=== PATIENT | female | born 1945 | race Caucasian/White ===

== ENCOUNTER 2024-05-29 05:44 | Inpatient (IN) ==
[2024-05-16 17:14] LABS: Basophils # (Auto) 0.05 K/mcL (0.00-0.30); Basophils % (Auto) 0.6 % (0.0-2.0); Eosinophils # (Auto) 0.24 K/mcL (0.00-0.70); Eosinophils % (Auto) 3.1 % (0.0-7.0); Hematocrit 36.9 % (34.1-44.9); Hemoglobin 11.7 g/dL (11.2-15.7); Lymphocytes # (Auto) 2.54 K/mcL (1.50-4.80); Lymphocytes % (Auto) 32.7 % (15.5-49.0); Mean Cell Volume 92.3 fL (80.0-100.0); Mean Corpuscular HGB Conc 31.7 g/dL (31.0-36.0); Mean Platelet Volume 9.2 fL (8.8-12.5); Monocytes # (Auto) 0.56 K/mcL (0.10-0.90); Monocytes % (Auto) 7.2 % (1.0-12.0); Neutrophils % (Auto) 56.1 % (38.0-78.0); Platelet Count 281 K/mcL (140-440); Red Cell Distribution Width 14.4 % (11.5-14.5); WBC 7.8 K/mcL (4.5-11.0)
[2024-05-16 17:25] LABS: INR 0.9 (0.9-1.1); Prothrombin Time 12.8 sec (11.9-14.5)
[2024-05-16 17:31] LABS: ALT/SGPT 29 U/L (<40); AST/SGOT 24 U/L (<32); Albumin 4.2 gm/dL (3.2-5.2); Albumin/Globulin Ratio 1.4 (1.0-2.3); Alkaline Phosphatase 75 U/L (39-117); Bilirubin,Total 0.3 mg/dL (0.1-1.0); Blood Urea Nitrogen 21 mg/dL (8-23); Calcium 9.7 mg/dL (8.6-10.4); Carbon Dioxide 26 mmol/L (22-30); Chloride 98 mmol/L (96-108); Globulin 3.1 gm/dL (2.2-3.7); Glomerular Filtration Rate 69; Glucose 110 mg/dL (70-105); Potassium 4.4 mmol/L (3.3-5.1); Sodium 136 mmol/L (133-145)
[2024-05-16 18:53] LABS: Estimated Average Glucose(eAG) 174 mg/dL; Hemoglobin A1C 7.7 % Hgb (4.0-6.0)
[2024-05-29] MEDS ORDERED: GLYCOPYRROLATE 0.2 MG/ML VIAL IV ONE (07:14)
[2024-05-29] MEDS ORDERED: SUCCINYLCHOLINE 200 MG/10 ML VIAL IV ONE (07:14)
[2024-05-29] MEDS ORDERED: FAMOTIDINE/PF 20 MG/2 ML VIAL IV ONE (07:14)
[2024-05-29] MEDS ORDERED: ONDANSETRON 4 MG/2 ML VIAL ONE (07:14)
[2024-05-29] MEDS ORDERED: DEXAMETHASONE 10 MG/ML VIAL ONE (07:14)
[2024-05-29] MEDS ORDERED: PROPOFOL 200 MG/20 ML VIAL IV ONE (07:14)
[2024-05-29] MEDS ORDERED: ROCURONIUM 10 MG/ML ML IV ONE (07:14)
[2024-05-29] MEDS ORDERED: KETAMINE 50 MG/ML Syringe IV ONE (07:19)
[2024-05-29] MEDS ORDERED: fentaNYL 100 MCG/2 ML VIAL ONE (07:19)
[2024-05-29] MEDS ORDERED: MAGNESIUM SULFATE 2 GM/50 ML BAG IV ONE (07:21)
[2024-05-29] MEDS: methylPREDNISolone SOD SUCC 125 MG/2 ML VIAL IV SCH ×2 (07:28→20:30)
[2024-05-29] MEDS: SCOPOLAMINE 1 PATCH PATCH TOPICAL ONE (07:29)
[2024-05-29] MEDS: metroNIDAZOLE 500 MG/100 ML BAG IV SCH ×2 (07:29→12:11)
[2024-05-29] MEDS: CEFEPIME 2 GM VIAL IV SCH (07:49)
[2024-05-29] MEDS ORDERED: PHENYLephrine 1 MG/10 ML SYRINGE (ANEST) ONE (07:50)
[2024-05-29] MEDS ORDERED: HYDROmorphone 0.5 MG/0.5 ML SYRINGE ONE (08:09)
[2024-05-29] MEDS ORDERED: METOCLOPRAMIDE 10 MG/2 ML VIAL ONE (08:12)
[2024-05-29] MEDS ORDERED: BENZOCAINE/MENTHOL 1 LOZENGE PO PRN (08:22)
[2024-05-29] MEDS ORDERED: DROPERIDOL 5 MG/2 ML VIAL IV PRN (08:22)
[2024-05-29] MEDS ORDERED: IPRATROPIUM/ALBUTEROL 3 ML AMPUL.NEB NEB PRN (08:22)
[2024-05-29] MEDS ORDERED: LACTATED RINGERS 250 ML IV PRN (08:22)
[2024-05-29] MEDS ORDERED: NALOXONE HCL 0.4 MG/ML VIAL IV PRN (08:22)
[2024-05-29] MEDS ORDERED: SUGAMMADEX SODIUM 200 MG/2 ML VIAL IV ONE (08:48)
[2024-05-29] MEDS: ACETAMINOPHEN 1,000 MG/100 ML BAG IV ONE (09:30)
[2024-05-29] MEDS: fentaNYL 100 MCG/2 ML VIAL IV PRN (10:00)
[2024-05-29] MEDS: ONDANSETRON 4 MG/2 ML VIAL IV PRN ×2 (10:01→17:24)
[2024-05-29] MEDS: METHOCARBAMOL 1,000 MG/10 ML VIAL IV PRN (10:04)
[2024-05-29] MEDS: HYDROmorphone 0.5 MG/0.5 ML SYRINGE IV PRN (10:26)
[2024-05-29] MEDS: LEVOFLOXACIN 750 MG/150 ML BAG IV SCH (10:30)
[2024-05-29] MEDS ORDERED: METOCLOPRAMIDE 10 MG/2 ML VIAL IV SCH (12:00)
[2024-05-29] MEDS: LACTATED RINGERS 1,000 ML IV SCH ×2 (12:31→14:46)
[2024-05-29] MEDS: METOCLOPRAMIDE 10 MG/2 ML VIAL IV SCH (12:31)
[2024-05-29] MEDS ORDERED: HYDROCORTISONE SOD SUCC 100 MG VIAL IV SCH (14:00)
[2024-05-29] MEDS: 0.9 % SODIUM CHLORIDE 10 ML SYRINGE IV SCH (14:40)
[2024-05-29] MEDS: ACETAMINOPHEN 1,000 MG/100 ML BAG IV SCH (14:40)
[2024-05-29] MEDS: HYDROCORTISONE SOD SUCC 100 MG VIAL IV ONE (14:45)
[2024-05-29] MEDS: PANTOPRAZOLE 40 MG VIAL IV SCH (17:25)
[2024-05-29] MEDS: INSULIN LISPRO 1 UNIT/0.01 ML UNIT SQ SCH (17:42)
[2024-05-29] MEDS: SENNOSIDES 1 TABLET PO SCH (20:28)
[2024-05-29] MEDS: DOCUSATE SODIUM 100 MG CAPSULE PO SCH (20:28)
[2024-05-29] MEDS: HYDROmorphone 1 MG/ML SYRINGE IV PRN (21:24)
[2024-05-30 06:08] LABS: Basophils # (Auto) 0.01 K/mcL (0.00-0.30); Basophils % (Auto) 0.1 % (0.0-2.0); Eosinophils # (Auto) 0 K/mcL (0.00-0.70); Eosinophils % (Auto) 0 % (0.0-7.0); Hematocrit 35.4 % (34.1-44.9); Hemoglobin 11.4 g/dL (11.2-15.7); Lymphocytes # (Auto) 0.98 K/mcL (1.50-4.80); Lymphocytes % (Auto) 6.4 % (15.5-49.0); Mean Cell Volume 90.3 fL (80.0-100.0); Mean Corpuscular HGB Conc 32.2 g/dL (31.0-36.0); Mean Platelet Volume 9.2 fL (8.8-12.5); Monocytes # (Auto) 0.42 K/mcL (0.10-0.90); Monocytes % (Auto) 2.7 % (1.0-12.0); Neutrophils % (Auto) 90.5 % (38.0-78.0); Platelet Count 314 K/mcL (140-440); RBC 3.92 M/mcL (3.59-5.38); Red Cell Distribution Width 13.8 % (11.5-14.5); WBC 15.3 K/mcL (4.5-11.0)
[2024-05-30 06:12] LABS: ALT/SGPT 25 U/L (<40); AST/SGOT 26 U/L (<32); Albumin 3.8 gm/dL (3.2-5.2); Albumin/Globulin Ratio 1.3 (1.0-2.3); Alkaline Phosphatase 68 U/L (39-117); Bilirubin,Direct < 0.2 mg/dL (0-0.3); Bilirubin,Total 0.2 mg/dL (0.1-1.0); Blood Urea Nitrogen 17 mg/dL (8-23); Calcium 8.8 mg/dL (8.6-10.4); Carbon Dioxide 25 mmol/L (22-30); Chloride 99 mmol/L (96-108); Globulin 2.9 gm/dL (2.2-3.7); Glomerular Filtration Rate 53; Glucose 182 mg/dL (70-105); Lactate Dehydrogenase 109 U/L (135-225); Phosphorous 3.7 mg/dL (2.5-4.5); Sodium 138 mmol/L (133-145); Triglycerides 36 mg/dL (<150); Uric Acid 7.5 mg/dL (2.5-8.0)
[2024-05-30] MEDS: LEVOTHYROXINE 100 MCG VIAL IV SCH (07:29)
[2024-05-30] MEDS: diphenhydrAMINE 50 MG/ML VIAL IV PRN (21:32)
[2024-05-31 07:06] LABS: Basophils # (Auto) 0.01 K/mcL (0.00-0.30); Basophils % (Auto) 0.1 % (0.0-2.0); Eosinophils # (Auto) 0 K/mcL (0.00-0.70); Eosinophils % (Auto) 0 % (0.0-7.0); Hematocrit 32.6 % (34.1-44.9); Hemoglobin 10.5 g/dL (11.2-15.7); Lymphocytes # (Auto) 0.82 K/mcL (1.50-4.80); Lymphocytes % (Auto) 6.9 % (15.5-49.0); Mean Cell Volume 90.1 fL (80.0-100.0); Mean Corpuscular HGB Conc 32.2 g/dL (31.0-36.0); Mean Platelet Volume 9.5 fL (8.8-12.5); Monocytes # (Auto) 0.52 K/mcL (0.10-0.90); Monocytes % (Auto) 4.4 % (1.0-12.0); Neutrophils % (Auto) 88.2 % (38.0-78.0); Platelet Count 281 K/mcL (140-440); RBC 3.62 M/mcL (3.59-5.38); Red Cell Distribution Width 14.4 % (11.5-14.5); WBC 11.8 K/mcL (4.5-11.0)
[2024-05-31 07:40] LABS: ALT/SGPT 19 U/L (<40); AST/SGOT 23 U/L (<32); Albumin 3.6 gm/dL (3.2-5.2); Albumin/Globulin Ratio 1.3 (1.0-2.3); Alkaline Phosphatase 61 U/L (39-117); Bilirubin,Direct < 0.2 mg/dL (0-0.3); Bilirubin,Total 0.2 mg/dL (0.1-1.0); Blood Urea Nitrogen 15 mg/dL (8-23); Carbon Dioxide 23 mmol/L (22-30); Chloride 102 mmol/L (96-108); Globulin 2.7 gm/dL (2.2-3.7); Glomerular Filtration Rate 60; Glucose 137 mg/dL (70-105); Lactate Dehydrogenase 121 U/L (135-225); Phosphorous 2.3 mg/dL (2.5-4.5); Potassium 3.9 mmol/L (3.3-5.1); Sodium 139 mmol/L (133-145); Triglycerides 48 mg/dL (<150); Uric Acid 6.6 mg/dL (2.5-8.0)
[2024-05-31] MEDS ORDERED: HYDROCORTISONE 10 MG TABLET PO SCH (08:00)
[2024-06-01 06:28] LABS: Basophils # (Auto) 0.01 K/mcL (0.00-0.30); Basophils % (Auto) 0.1 % (0.0-2.0); Eosinophils # (Auto) 0 K/mcL (0.00-0.70); Eosinophils % (Auto) 0 % (0.0-7.0); Hematocrit 31.9 % (34.1-44.9); Hemoglobin 10.3 g/dL (11.2-15.7); Lymphocytes % (Auto) 11.6 % (15.5-49.0); Mean Cell Volume 90.1 fL (80.0-100.0); Mean Corpuscular HGB Conc 32.3 g/dL (31.0-36.0); Mean Platelet Volume 9.1 fL (8.8-12.5); Monocytes # (Auto) 0.25 K/mcL (0.10-0.90); Monocytes % (Auto) 2.4 % (1.0-12.0); Neutrophils % (Auto) 85.3 % (38.0-78.0); Platelet Count 267 K/mcL (140-440); RBC 3.54 M/mcL (3.59-5.38); Red Cell Distribution Width 14.1 % (11.5-14.5); WBC 10.4 K/mcL (4.5-11.0)
[2024-06-01 06:45] LABS: ALT/SGPT 15 U/L (<40); AST/SGOT 20 U/L (<32); Albumin 3.5 gm/dL (3.2-5.2); Albumin/Globulin Ratio 1.4 (1.0-2.3); Alkaline Phosphatase 58 U/L (39-117); Bilirubin,Direct < 0.2 mg/dL (0-0.3); Bilirubin,Total 0.3 mg/dL (0.1-1.0); Blood Urea Nitrogen 15 mg/dL (8-23); Carbon Dioxide 25 mmol/L (22-30); Chloride 101 mmol/L (96-108); Globulin 2.5 gm/dL (2.2-3.7); Glomerular Filtration Rate 60; Glucose 140 mg/dL (70-105); Lactate Dehydrogenase 124 U/L (135-225); Phosphorous 2.2 mg/dL (2.5-4.5); Potassium 3.8 mmol/L (3.3-5.1); Sodium 139 mmol/L (133-145); Triglycerides 68 mg/dL (<150); Uric Acid 7.1 mg/dL (2.5-8.0)
[2024-06-02] MEDS: LACTATED RINGERS 1,000 ML IV SCH (15:56)
[2024-06-03 06:11] LABS: Hematocrit 33.8 % (34.1-44.9); Hemoglobin 11.1 g/dL (11.2-15.7); Mean Cell Volume 88.3 fL (80.0-100.0); Mean Corpuscular HGB Conc 32.8 g/dL (31.0-36.0); Platelet Count 300 K/mcL (140-440); RBC 3.83 M/mcL (3.59-5.38); Red Cell Distribution Width 13.7 % (11.5-14.5)
[2024-06-03 06:36] LABS: Blood Urea Nitrogen 18 mg/dL (8-23); Carbon Dioxide 26 mmol/L (22-30); Chloride 99 mmol/L (96-108); Glomerular Filtration Rate 60; Glucose 187 mg/dL (70-105); Potassium 3.6 mmol/L (3.3-5.1); Sodium 137 mmol/L (133-145)
[2024-06-03 12:31] VITALS: TEMP 97.3; O2SAT 99
== END 2024-06-03 14:15 | disposition home health service (06) | DRG 330 ==
LOC: MEDSUR 05:44
PROVIDERS: ADMIT Family Medicine Adult Medicine; ATTEND Family Medicine Adult Medicine